=== PATIENT | female | born 1940 | race Caucasian/White ===

== ENCOUNTER → 2017-04-29 | Outpatient (CLI) | payer MEDICARE, OTHER ==
[2012-08-11 14:47] VITALS: BP 123/44
[~2017-04-29] MED LIST: BACTRIM DS 8001 TAB PO
== END ==
LOC: RAD 17:59
DX: I51.7 Cardiomegaly (principal); R93.1 Abnormal findings on diagnostic imaging of heart and coronary circulation

== ENCOUNTER → 2017-08-12 | Outpatient (CLI) | payer MEDICARE, OTHER ==
[2012-08-11 14:47] VITALS: BP 123/44
== END ==
LOC: RAD 17:21
DX: I51.7 Cardiomegaly (principal)